=== PATIENT | male | born 1930 | race Caucasian/White ===

== ENCOUNTER 2017-01-21 12:20 | Emergency (ER) | payer MEDICARE ==
[2012-11-20 07:56] VITALS: BMI 21.2
== END 2017-01-21 17:20 | disposition home or self-care (01) ==
LOC: D.ER 12:20
DX: K59.00 Constipation, unspecified (principal); G20 Parkinson's disease

== ENCOUNTER 2017-09-13 08:05 | Emergency (ER) | payer MEDICARE, MEDICAID ==
[2012-11-20 07:56] VITALS: BMI 21.2
[2017-09-13 08:52] LABS: BASOPHILS 0.3 % (0-2); EOSINOPHILS 0.8 % (0-7); HEMATOCRIT 40.9 % (42.0-54.0); HEMOGLOBIN 13.8 g/dL (13.5-17.5); IMMATURE GRANULOCYTES 0.1 % (0-5); LYMPHOCYTES 11.1 % (15-50); MCH 30.4 pg (26.0-34.0); MCHC 33.7 g/dL (31.0-37.0); MCV 90.1 fL (80.0-100.0); MEAN PLATELET VOLUME 10.3 fL (7.4-10.4); MONOCYTES 10.1 % (2-11); NEUTROPHILS 77.6 % (40-80); PLATELET COUNT 152 10x3/uL (130-400); RBC 4.54 10x6/uL (4.20-6.10); RDW 13.8 % (11.5-14.5); WBC 7.3 10x3/uL (4.8-10.8)
[2017-09-13 09:08] LABS: ALKALINE PHOSPHATASE 35 U/L (46-116); AMYLASE - SERUM 50 U/L (25-115); BILIRUBIN - TOTAL 0.42 mg/dL (0.2-1.3); CALC OSMOLALITY 280 mosm/kg (275-300); CALCIUM 9.2 mg/dL (8.5-10.1); CARBON DIOXIDE 25.6 mmol/L (21.0-32.0); CHLORIDE - SERUM 103 mmol/L (98-107); CREATININE - SERUM 0.9 mg/dL (0.6-1.3); GLUCOSE 109 mg/dL (74-106); LIPASE 75 U/L (73-393); POTASSIUM - SERUM 4.6 mmol/L (3.5-5.1); PROTEIN - SERUM 7.5 g/dL (6.4-8.2); SODIUM 139 mmol/L (136-145); UREA NITROGEN 17 mg/dL (7-18); eGFR NON AFRICAN AMERICAN 85 mL/min (90-120)
[2017-09-13 09:17] LABS: ALT (SGPT) 5 U/L (10-68)
[2017-09-13 09:25] LABS: APPEARANCE HAZY (CLEAR); BILIRUBIN NEGATIVE (NEGATIVE); COLOR YELLOW (YELLOW); GLUCOSE NEGATIVE (NEGATIVE); KETONE NEGATIVE (NEGATIVE); NITRITE NEGATIVE (NEGATIVE); PROTEIN NEGATIVE (NEGATIVE); SPECIFIC GRAVITY 1.025 (1.005-1.020); UROBILINOGEN NORMAL (NORMAL)
[2017-09-13 09:34] LABS: EPITHELIAL CELLS OCC /hpf (0-5); RED CELLS - URINE 0-5 /hpf (0-5); WHITE CELLS - URINE RARE /hpf (0-5)
[2017-09-13 09:35] LABS: BACTERIA FEW /hpf (NONE SEEN); HYALINE CAST OCC /lpf (NONE SEEN); MUCUS <1+ /lpf (NONE SEEN)
== END 2017-09-13 11:36 | disposition home or self-care (01) ==
LOC: D.ER 08:05
PROVIDERS: Family Medicine
DX: K59.00 Constipation, unspecified (principal); G20 Parkinson's disease

== ENCOUNTER 2017-11-26 09:34 | Inpatient (IN) | payer MEDICARE, MEDICAID ==
[~2017-11-26] VITALS: Ht 182.9 cm; Wt 83.7 kg
[2017-11-26] VITALS (41 sets, daily range): BP systolic 95–165; BP diastolic 36–70; BMI 22.4
--- NOTE | ~2017-11-26 | DS ---
PATIENT:ISSAC MARS :30 MEDICAL RECORD: [id number] DISCHARGE SUMMARY ADMISSION DATE: 11/26/17 DISCHARGE DATE: 12/06/17 DIAGNOSES: 1. Non-Q-wave myocardial infarction. 2. Coronary artery disease. 3. PTCA stent LAD this admission. 4. Ischemic cardiomyopathy. 5. Respiratory failure. 6. COPD. HOSPITAL COURSE: This is a gentleman who presents with respiratory failure as well as chest pain, found to have a non-Q-wave myocardial infarction, underwent PTCA stent of the LAD. He was intubated; however, he was stable from a cardiac standpoint, he never recovered from a respiratory standpoint despite aggressive pulmonary efforts as well as antibiotic therapy and the decision was made by family to terminally extubate him, he soon thereafter. TRANSINT:[id number] Voice Confirmation ID: [id number] DOCUMENT ID: [id number] DEBBY PINTO MD at 1711 CC: [id number] DICTATION DATE: 01/09/18 1108 DISPATCHER RELAY: 01/09/18 1425 DIS IN 12/06/17 [id number] [place] [address]
--- NOTE | ~2017-11-26 | HP ---
PATIENT: ISSAC MARS MEDICAL RECORD: [id number] ACCOUNT: [id number] LOCATION:[facility].CV04 : 30 ADMISSION DATE: 11/26/17 HISTORY AND PHYSICAL EXAMINATION DIAGNOSES: 1. Acute anterior myocardial infarction. 2. Atrial fibrillation. 3. Congestive heart failure. 4. Coronary artery disease. 5. Peripheral vascular disease. 6. Parkinson's. 7. Chronic back pain. HISTORY OF PRESENT ILLNESS: Mr. Mars presents with chest pain. The chest pain actually started last night at approximately 2000 hours. He has continued to have chest pain this morning. His EKG is compatible with an acute anterior myocardial infarction as well as new-onset atrial fibrillation. His x-ray is compatible with pulmonary edema, congestive heart failure. He has no history of ischemic heart disease. He only has a history of peripheral vascular disease and a renal stent. He has a history of Parkinson's and chronic back pain. PHYSICAL EXAMINATION: GENERAL APPEARANCE: Well-nourished, well-developed, appears stated age. Level of distress, comfortable. PSYCHIATRIC: Mental status, alert, normal affect. Orientation, oriented to time, place and person. EYES: Lids and conjunctiva, noninjected. No discharge, no pallor. ENT: Lips, teeth, gums, normal dentition. Oropharynx, no cyanosis, no pallor. NECK: Carotid arteries, bilateral normal upstroke, no bruits, no thrills. JUGULAR VEINS: No jugular venous pressure or distention. CERVICAL LYMPH NODES: Nontender, nonenlarged. THYROID: Not enlarged. Nontender. No nodules. LUNGS: Bibasilar crackles. CHEST: Normal curvature. No thoracic deformity. No chest wall tenderness. Percussion, resonant. Auscultation, clear. No wheezes, no rales, no rhonchi. CARDIOVASCULAR: Irregularly irregular, atrial fibrillation. EXTREMITIES: No cyanosis, no edema. Peripheral pulses, full and equal in all extremities, except as noted. No bruits appreciated. ABDOMEN: Soft, nondistended. Normal aorta. No bruit. Nontender. No masses. Liver, nontender, no hepatomegaly. Spleen, nontender, no splenomegaly. MUSCULOSKELETAL: No joint tenderness. No joint swelling. No erythema. NEUROLOGICAL: Normal gait, normal strength, normal tone. SKIN: Warm and dry. OVERALL IMPRESSION: Myocardial infarction, continued chest pain; however, greater than 12 hours of a myocardial infarction at his age group with congestive heart failure puts him in a very poor prognostic group with greater than 80% mortality. We will proceed with cardiac catheterization for salvage angioplasty. Further care depends upon the findings of the catheterization. His systolic blood pressure is low in the 70s and 80s, most likely secondary to the myocardial infarction and LV pump failure. We will most likely start pressors and balloon pump as well. TRANSINT:[id number] Voice Confirmation ID: [id number] DOCUMENT ID: [id number] HISTORY AND PHYSICAL [id number] ISSAC MARS JEFFREY MD at 0956 CC: [id number] DICTATION DATE: 11/26/17 1141 CHANNEL MACHINE OPERATOR: 11/26/17 1209 ADM IN [facility] [address] [place] [address]
--- NOTE | ~2017-11-26 | OP ---
PATIENT NAME: ISSAC MARS MEDICAL RECORD: [id number] :30 LOCATION:D.[facility] D.CV04 ADMISSION DATE:11/26/17 SURGEON: DEBBY PINTO MD DATE OF OPERATION: 11/26/2017 PROCEDURES: 1. PTCA and stent of LAD. 2. Left heart catheterization. 3. Selective coronary angiography. 4. Left ventriculogram. 5. Intra-aortic balloon pump. INDICATION: Acute anterior myocardial infarction. PROCEDURE IN DETAIL: After informed consent was obtained and after detailed explanation of risks and benefits as well as alternative therapies, the patient elected to proceed with angiogram and angioplasty. The right femoral area was prepped and draped in normal sterile fashion. Right femoral artery was cannulated via modified Seldinger technique with placement of 8-Uzbek sheath. The left femoral artery was prepped and draped in normal sterile fashion. Left femoral artery was cannulated via modified Seldinger technique with placement of 7-Uzbek sheath. All catheters were exchanged through the sheath. FINDINGS: The left iliac is subtotally occluded with inability to pass balloon pump through the left iliac. Left ventriculogram performed in standard 30-degree MCKINLEY view reveals anteroapical akinesis. Ejection fraction 25%. SELECTIVE CORONARY ANGIOGRAPHY: 1. Left main has no significant angiographic disease. 2. Left anterior descending is totally occluded proximally. 3. Left circumflex has moderate irregularities, but no flow-limiting stenosis. 4. Right coronary is small and nondominant with no significant disease. PTCA AND STENT OF THE LAD: The stents used were 3.0 x 30 and 3.0 x 18, both Integrity stents. Result was 0% residual stenosis. OVERALL IMPRESSION: Successful PTCA and stent of the LAD going from 100% initial stenosis to 0% residual stenosis. Due to his low blood pressure, intra-aortic balloon pump was placed then through the right groin and positioned in the descending aorta and intra-aortic balloon counterpulsation was undertaken. At the end of the case, he had an augmented pressure of 110. TRANSINT:[id number] Voice Confirmation ID: [id number] DOCUMENT ID: [id number] DEBBY PINTO MD at 0956 CC: [id number] DICTATION DATE: 11/26/17 1143 CUSTOMER CARE AGENT: 11/26/17 1734 ADM IN [facility] [address] [place] [address]
--- NOTE | ~2017-11-26 | HEMODYNAMI ---
PATIENT:ISSAC MARS MEDICAL RECORD: [id number] : 30 LOCATION:D.ER ADMISSION DATE: 11/26/17 Generatedon:11/26/201712:26 Patient name: ISSAC MARS Patient #: [id number] SSN: : 1930 Date of study: 11/26/2017 Page: Of Hemodynamic Procedure Report Patient Data Patient Demographics Procedure consent was obtained First Name: ISSAC Gender: Male Last Name: MADISYN : 1930 [facility] Initial: C Age: 87 year(s) Patient #: [id number] Race: Unknown Additional ID: [id number] Contact details Address: [address] [place] [address] State: [place] City: [place] Zip code: [address] Admission Admission Data Admission Date: 11/26/2017 Admission Time: 9:34 Procedure Procedure Types Cath Procedure Diagnostic Procedure LHC LHC w/Coronaries Intra-Aortic Balloon Pump PCI Procedure AMI/SVG/BOOK ILLUSTRATOR PTCA or Stent AMI-BMS/ROSEY Initial Procedure Description Procedure Date Procedure Date: 11/26/2017 Procedure Start Time: 11:06 Procedure End Time: 12:26 Procedure Staff Name Function Stone Rucker MD Performing Physician Marielos Cole RT Monitor Ant Haque RN Nurse Virgilio Haines RT Scrub Procedure Data Cath Procedure Fluoroscopy Diagnostic fluoroscopy Total fluoroscopy Time: 8.1 time: 8.1 min min Diagnostic fluoroscopy Total fluoroscopy dose: 667 dose: 667 mGy mGy Contrast Material Contrast Material Type Amount (ml) Isovue 370 0 Isovue 300 105 Entry Location Entry Primary Successful Side Size Upsize Upsize Entry Closure Succes sful Closure Location (Fr) 1 (Fr) 2 (Fr) Remarks Device Remarks Femoral Right 6 Fr 8 Fr Sheath WITH artery Short sutured IABP IN in PLACE place Femoral Left 7 Fr Sheath artery Short sutured in place Estimated blood loss: 10 ml Diagnostic catheters Device Type Used For End Catheter Placement MULTIPACK JL 4.0 5Fr Left Coronary catheter Angiography MULTIPACK 3DRC 5Fr Right Coronary catheter Angiography MULTIPACK Pigtail 5 Fr LV Angiography catheter Procedure Complications Cardiogenic Shock Procedure Medications Medication Administration Route Dosage Oxygen NC 5 l/min Heparin Flush Bag added to field 2 bags (1000units/500ml NS) 0.9% NaCl I.V. 150 ml/hr Heparin Bolus I.V. 5000 units Integrilin (Bolus I.V. 6.2 ml 2mg/ml) Integrilin (Bolus I.C. 6.2 ml 2mg/ml) Integrilin Drip I.V. drip 11.2 ml/hr (75mg/100ml) Versed I.V. 5 mg unlisted medication I.V. 100 mg Heparin Bolus I.V. 5000 units Integrilin (Bolus wasted 7.6 ml 2mg/ml) Heparin Drip I.V. drip 1000 units/hr (13533lyhjb/250 D5W) Versed I.V. 2 mg Hemodynamics Rest Pre Cath Intra NCS Post Cath Vital Signs Time Heart Resp SPO2 etCO2 NIBP (mmHg) Rhythm Pain Sedation Rate (ipm) (%) (mmHg) Status Level (bpm) 10:57:23 96 13 0 105/87(100) NSR 0 (11) 10(A) , No pain 11:01:56 115 17 0 75/44(64) NSR 0 (11) 10(A) , No pain 11:06:55 101 18 0 Measuring NSR 0 (11) 10(A) , No pain 11:07:03 122 17 0 97/35(81) NSR 0 (11) 10(A) , No pain 11:11:33 121 20 0 78/56(68) NSR 0 (11) 10(A) , No pain 11:16:00 127 22 94 0 75/54(65) NSR 0 (11) 10(A) , No pain 11:20:28 101 18 0 54/39(50) NSR 0 (11) 10(A) , No pain 11:25:23 99 23 0 79/62(70) NSR 0 (11) 10(A) , No pain 11:30:22 130 20 0 Measuring NSR 0 (11) 10(A) , No pain 11:30:28 90 27 0 80/61(73) NSR 0 (11) 10(A) , No pain 11:34:56 114 14 0 79/55(75) NSR 0 (11) 2(A) , No pain 11:39:55 88 17 0 Measuring NSR 0 (11) 2(A) , No pain 11:39:57 87 17 0 87/46(75) NSR 0 (11) 2(A) , No pain 11:44:26 108 15 0 91/55(79) NSR 0 (11) 2(A) , No pain 11:48:52 111 17 0 84/66(74) NSR 0 (11) 2(A) , No pain 11:53:20 95 23 0 90/59(83) NSR 0 (11) 2(A) , No pain 11:58:19 75 11 0 97/48(76) NSR 0 (11) 2(A) , No pain 12:03:18 108 16 0 Measuring NSR 0 (11) 2(A) , No pain 12:03:28 110 16 0 89/66(85) NSR 0 (11) 2(A) , No pain 12:07:55 111 17 0 101/70(83) NSR 0 (11) 2(A) , No pain 12:12:23 114 16 0 95/80(85) NSR 0 (11) 2(A) , No pain 12:16:49 112 13 0 108/75(85) NSR 0 (11) 2(A) , No pain 12:21:22 111 19 0 104/57(82) NSR 0 (11) 2(A) , No pain Medications Time Medication Route Dose Verified Delivered Reason Not es Effectiveness by by 11:01:22 Oxygen NC 5 l/min Stone Cain Per physician Alka Haque RN 11:01:30 Heparin Flush added 2 bags Stone Cain used for Bag to Alka Haque RN procedure (1000units/500ml field NS) 11:01:43 0.9% NaCl I.V. 150 Stone Cain Per physician ml/hr Alka Haque RN 11:15:35 Heparin Bolus I.V. 5000 Stone Cain for units Alka Haque RN anticoagulation 11:17:24 Integrilin I.V. 6.2 ml Stone Cain for (Bolus 2mg/ml) Alka Haque RN antiplatelet therapy 11:20:30 Integrilin I.C. 6.2 ml Stone Ritter for (Bolus 2mg/ml) Alka Rucker MD antiplatelet therapy 11:29:16 Integrilin Drip I.V. 11.2 Stone Ritter for (75mg/100ml) drip ml/hr Alka Rucker MD antiplatelet therapy 11:31:38 Versed I.V. 5 mg Stone Cain for sedation Alka Haque RN 11:31:55 succs\ I.V. 100 mg Stone Garay Cosby Per physician Alka SMITH 11:38:24 Heparin Bolus I.V. 5000 Stone Cain for units Alka Haque RN anticoagulation 11:46:18 Integrilin wasted 7.6 ml Stone Cain for (Bolus 2mg/ml) Alka Haque RN antiplatelet therapy 11:56:56 Heparin Drip I.V. 1000 Stone Cain for (20486nprey/250 drip units/hr Alka Haque RN anticoagulation D5W) 12:03:01 Versed I.V. 2 mg Stone Cain for sedation Alka Haque RN Procedure Log Time Note 10:41:35 Ant Haque RN sent for patient. Start room use. 10:41:38 Time tracking: Call back (After hours or weekends) 10:41:42 Plan of Care:Hemodynamics will remain stable., Cardiac rhythm will remain stable., Comfort level will be maintained., Respiratory function will remain adequate., Patient/ family verbilizes understanding of procedure., Procedure tolerated without complication., Recovers from procedure without complications.. 10:56:35 Patient arrives emergently. 10:56:40 Patient received from ED to CCL 1 Alert and oriented. Tansferred to table in Supine position. 10:56:41 Warm blankets applied, and ashok hugger turned on for patient comfort. 10:56:42 Correct patient and procedure confirmed by team. 10:56:43 Signed procedure consent form obtained from patient. 10:56:43 ECG and BP/O2 sat monitors applied to patient. 10:56:44 Vital chart was started 10:58:39 Full Disclosure recording started 11:01:22 Oxygen 5 l/min NC was administered by Ant Haque RN; Per physician; 11:01:30 Heparin Flush Bag (1000units/500ml NS) 2 bags added to field was administered by Ant Haque RN; used for procedure; 11:01:43 0.9% NaCl 150 ml/hr I.V. was administered by Ant Haque RN; Per physician; 11:04:44 Pre-procedure instructions explained to patient. 11:04:47 H&P Date Dictated: 11/26/2017 Emergent; H&P N/A. 11:04:49 Pre-op teaching completed and patient verbalized understanding. 11:04:50 Family in waiting room. 11:04:52 Patient NPO since Midnight. 11:04:57 Patient diabetic? Yes. 11:04:59 Final Timeout: patient, procedure, and site verified with staff and physician. All members of the team are in agreement. 11:05:03 Bilateral groins site verified by team. 11:05:05 Physical assessment completed. ASA score P 4 - A patient with severe systemic disease that is a constant threat to life as per Stone Rucker MD. 11:05:08 Sedation plan: IV Moderate Sedation Medication:Versed, Fentanyl 11:05:14 Bilateral groins area was prepped with chlora-prep and draped in sterile fashion 11:05:15 Alarms reviewed by R. N. 11:05:15 Sharps counted by scrub and verified by R.N. 11:05:18 Lab results completed and on chart. 11:05:24 Use device set Femoral Dx 11:05:28 ACIST Syringe (56646) opened to sterile field. 11:05:29 Bag Decanter () opened to sterile field. 11:05:29 Medline Cath Pack ([id number]) opened to sterile field. 11:05:30 DIAGNOSTIC WIRE .035 260cm J wire (283738) opened to sterile field. 11:05:31 ACIST Hand Control (18910) opened to sterile field. 11:05:31 ACIST Manifold (51159) opened to sterile field. 11:05:32 DIAGNOSTIC Multipack 5Fr catheter set (ES8897) opened to sterile field. 11:05:33 Tegaderm 4 x 4 (1626W) opened to sterile field. 11:05:33 PERCUTANEOUS ENTRY 19GA needle opened to sterile field. 11:05:58 SHEATH 6Fr Prelude ([id number]) opened to sterile field. 11:06:03 Procedure started. 11:06:07 Local anesthetic to right femoral artery with Lidocaine 2% by Stone Rucker MD.INITIAL ACCESS ONLY 11:06:15 A 6 Fr Short sheath was inserted into the Right Femoral artery 11:06:29 IV patent on arrival in left wrist with 0.9% NaCl at KVO. 11:08:17 A MULTIPACK Pigtail 5 Fr catheter was advanced over the wire and used for LV Angiography. 11:10:35 A MULTIPACK JL 4.0 5Fr catheter was advanced over the wire and used for Left Coronary Angiography. 11:10:56 Catheter removed. 11:11:05 A MULTIPACK 3DRC 5Fr catheter was advanced over the wire and used for Right Coronary Angiography. 11:11:37 Catheter removed. 11:11:52 Use device set [facility] PCI 11:11:57 INFLATOR Merit BasixCompak (HR3326) opened to sterile field. 11:12:43 GUIDE 6FR XBLAD 3.5 catheter ([id number]) opened to sterile field. 11:12:54 6 Fr XBLAD 3.5 guide catheter was inserted over the wire 11:14:46 Inflate balloon Inflation number: 1 A EMERGE OTW 3.0 x 20 balloon ([id number]) was prepped and advanced across the Mid LAD, then inflated to 13 PO for 0:06 (min:sec). 11:15:35 Heparin Bolus 5000 units I.V. was administered by Ant Haque RN; for anticoagulation; 11:15:39 Balloon removed over the wire. 11:16:26 CHOICE PT ES wire advanced. 11:17:24 Integrilin (Bolus 2mg/ml) 6.2 ml I.V. was administered by Ant Haque RN; for antiplatelet therapy; 11:17:34 Place stent Inflation Number: 2 A INTEGRITY RX 3.0 x 30 stent ([id number]) was prepped and advanced across the Mid LAD. The stent was deployed at 13 PO for 0:07 (min:sec). 11:19:35 Stent catheter was removed intact over wire. 11:19:39 Place stent Inflation Number: 3 A INTEGRITY OTW 3.0 X 18 stent ([id number]) was prepped and advanced across the Mid LAD. The stent was deployed at 13 PO for 0:00 (min:sec). 11:19:42 Stent catheter was removed intact over wire. 11:20:01 CHOICE PT Extra Support J 300cm guide wire ([id number]) opened to sterile field. 11:20:30 Integrilin (Bolus 2mg/ml) 6.2 ml I.C. was administered by Stone Rucker MD; for antiplatelet therapy; 11:22:58 PATIENT LOST PRESSURE AND STOPPED BREATHING 11:23:43 CODE BLUE CALLED 11::06 Local anesthetic to left femerol artery with Lidocaine 2% by Stone Rucker MD.ADDITIONAL ACCESS 11:26:29 A 7 Fr Short sheath was inserted into the Left Femoral artery 11::57 LEFT ILIAC OCCLUDED 11:27:13 Wire removed. 11:27:15 Guide catheter removed. 11:29:16 Integrilin Drip (75mg/100ml) 11.2 ml/hr I.V. drip was administered by Stone Rucker MD; for antiplatelet therapy; 11::28 Sheath upsized to a 8 Fr. 11::48 34cc IABP inserted into the RFA . 11::52 Augmentation: 1:2 per physician. 11:29:53 Trigger: Pressure 11:30:34 Augmenter BP: 107 11:31:38 Versed 5 mg I.V. was administered by Ant Haque RN; for sedation; 11:31:55 succs\ 100 mg I.V. was administered by Dr Cosby; Per physician; 11:32:[address] COSBY WITH 8.0 TUBE WITH 24 LIP 11:38:24 Heparin Bolus 5000 units I.V. was administered by Ant Haque RN; for anticoagulation; 11:40:52 Procedure ended.(Physican Out) 11:45:33 Sheath removed intact; hemostasis achieved with Sheath sutured in place to the Right Femoral artery. 11:45:42 Fluoroscopy time 08.10 minutes. 11:46:18 Integrilin (Bolus 2mg/ml) 7.6 ml wasted was administered by Ant Haque RN; for antiplatelet therapy; 11:46:23 IABP 34cm balloon catheter ([id number]) opened to sterile field. 11:46:24 ART Line (PX260) opened to sterile field. 11:46:25 TUBING High Pressure Extension (IABP) opened to sterile field. 11:46:[address] Yogesh (346092) opened to sterile field. 11:47:30 SHEATH 7FR [place] (SDF730) opened to sterile field. 11:48:32 Flurop Dose total: 667 11:48:32 Fluoroscopy dose: 667 mGy 11:49:09 Contrast amount:Isovue 370 0ml. 11:49:37 Contrast amount:Isovue 300 105ml. 11:49:39 Sharps counted by scrub and verified by R.N. 11:49:41 Insertion/operative site no bleeding no hematoma. 11:49:45 Post-op/insertion site Right Femoral artery dressed using a 4 x 4 and Tegaderm. 11:49:50 Post right femoral artery:stable, clean and dry 11:50:17 Sheath removed intact; hemostasis achieved with Sheath sutured in place to the Left Femoral artery. 11:51:03 2-0 [place] 685H opened to sterile field. 11:51:06 2-0 [place] 685H opened to sterile field. 11:51:16 Post left femerol artery:stable, clean and dry 11:51:22 Post-op/insertion site Left Femoral artery dressed using a 4 x 4 and Tegaderm. 11:51:23 Post Procedure Pulses reassessed and unchanged 11:51:28 Post-procedure physical assessment completed. ASA score P 4 - A patient with severe systemic disease that is a constant threat to life as per Stone Rucker MD. 11:51:46 Post procedure rhythm: unchanged. 11:51:50 Estimated blood loss: 10 ml 11:51:51 Post procedure instruction explained to patient.Patient verbalizes understanding. 11:51:52 Patient needs reinforcement of post procedure teaching. 11:51:53 Procedure and supply charges have been captured, reviewed, submitted and are correct. 11:52:20 Procedure type changed to Cath procedure, Diagnostic procedure, LHC, LHC w/Coronaries, Intra-Aortic Balloon Pump, PCI procedure, AMI/SVG/BOOK ILLUSTRATOR PTCA or Stent, AMI-BMS/ROSEY Initial 11:53:16 See physician's report for complete and final results. 11:53:20 Procedure Complication : Cardiogenic Shock 11:56:56 Heparin Drip (80497iseui/250 D5W) 1000 units/hr I.V. drip was administered by Ant Haque RN; for anticoagulation; 12:01:12 Tegaderm 4 x 4 (1626W) opened to sterile field. 12:01:13 Tegaderm 4 x 4 (1626W) opened to sterile field. 12:01:15 Tegaderm 4 x 4 (1626W) opened to sterile field. 12:01:15 Tegaderm 4 x 4 (1626W) opened to sterile field. 12:01:16 Tegaderm 4 x 4 (1626W) opened to sterile field. 12:03:01 Versed 2 mg I.V. was administered by Ant Haque RN; for sedation; 12:06:05 ART Line (PX260) opened to sterile field. 12:06:31 ART LINE SET UP ON LFA SHEATH 12:23:27 Vital chart was stopped 12:26:11 Report given to CVICU. 12:26:14 Patient transfered to CVICU with Bed. 12:26:16 Procedure ended. 12:26:16 Full Disclosure recording stopped 12:26:19 End room use (Document Last) Intervention Summary Intervention Notes Time ActionType Lesion and Equipment Action# Pressure Duration Attributes Used 11:14:46 Inflate Mid LAD EMERGE OTW 1 13 00:06 balloon 3.0 x 20 balloon ([id number]) 11:17:34 Place stent Mid LAD INTEGRITY RX 2 13 00:07 3.0 x 30 stent ([id number]) 11:19:39 Place stent Mid LAD INTEGRITY 3 13 00:00 OTW 3.0 X 18 stent ([id number]) Device Usage Item Name Manufacture Quantity Catalog Number [facility] Lot# / Charge Number Stock Stock Serial# Code ACIST Syringe Acist 1 80621 588247 307141 448578 20 (76442) Medical Systems Inc Bag Decanter Microtek 1 2001S 092586 86120 812226 5 () Medical Inc. Medline Cath Cardinal 1 [id number] 189545 46155 382008 5 [facility] ([id number]) DIAGNOSTIC WIRE St Yogesh 1 004057 014042 803690 868426 30 .035 260cm J wire (094046) ACIST Hand Acist 1 24565 515483 460520 964105 5 Control (88752) Medical Systems Inc ACIST Manifold Acist 1 05283 581156 864529 344808 5 (92560) Medical Systems Inc DIAGNOSTIC Cardinal 1 LY2755 520333 12594 121759 30 Multipack 5Fr Health catheter set ([id number]) Tegaderm 4 x 4 3M 6 1626W 366445 047968 202251 5 (1626W) PERCUTANEOUS Cook Medical 1 U70346 674590 501099 5 ENTRY 19GA needle SHEATH 6Fr Merit 1 [id number] 643036 985713 115167 5 Prelude Medical ([id number]) MULTIPACK JL Cardinal 1 762456 5 4.0 5Fr Health catheter MULTIPACK 3DRC Cardinal 1 307752 5 5Fr catheter Health INFLATOR Merit Merit 1 ZW7659 071795 196978 401839 15 Hammerhead Systems ([id number]) GUIDE 6FR XBLAD Cardinal 1 [id number] 221309 519691 245415 10 3.5 catheter Health (83279804) EMERGE OTW 3.0 [place] 1 [id number] 333544 878292 469643 5 x 20 balloon Scientific ([id number]) INTEGRITY RX Medtronic 1 [id number] 881811 045715 227582 5 [id number] 3.0 x 30 stent ([id number]) INTEGRITY OTW Medtronic 1 [id number] 362376 137830 9 [id number] 3.0 X 18 stent ([id number]) CHOICE PT Extra [place] 1 [id number] 650415 935384 076094 5 Support J 300cm Scientific guide wire ([id number]) MULTIPACK Cardinal 1 664400 5 Pigtail 5 Fr Health catheter IABP 34cm [facility] 1 [id number] 080421 939760 835265 [address] [facility] catheter (635327) ([id number]) ART Line Romo 2 PX260 657240 09239 128421 5 (PX260) Lifesciences TUBING High Merit 1 [id number] 484432 808415 12 5 Pressure Medical Extension (IABP) SHEATH 8FR St St Yogesh 1 910659 673134 904302 113478 5 Yogesh (706733) SHEATH 7FR Terumo 1 DRR122 768162 989455 729264 5 [place] (JME528) 2-0 [facility]ly [facility] [address] [address] 685 640788 11508 281688 5 Signature Audit [place] Stage Time Signature Unsigned Intra-Procedure 11/26/2017 Marielos 12:26:29 PM Counts RT(R) Signatures Monitor : Marielos Signature : Counts RT Date : Time : [address] [address]
[2017-11-26 10:15] LABS: BASOPHILS 0.4 % (0-2); HEMATOCRIT 45.4 % (42.0-54.0); HEMOGLOBIN 15.4 g/dL (13.5-17.5); IMMATURE GRANULOCYTES 0.3 % (0-5); LYMPHOCYTES 8.4 % (15-50); MCH 30.9 pg (26.0-34.0); MCHC 33.9 g/dL (31.0-37.0); MCV 91.2 fL (80.0-100.0); MEAN PLATELET VOLUME 10.8 fL (7.4-10.4); MONOCYTES 8.3 % (2-11); NEUTROPHILS 81.6 % (40-80); PLATELET COUNT 156 10x3/uL (130-400); RBC 4.98 10x6/uL (4.20-6.10); RDW 14.2 % (11.5-14.5); WBC 10.8 10x3/uL (4.8-10.8)
[2017-11-26 10:28] LABS: INR 1.01 (0.85-1.17)
[2017-11-26 10:29] LABS: APTT 31.5 SECONDS (22.8-39.4)
[2017-11-26 10:32] LABS: ALBUMIN 3.8 g/dL (3.4-5.0); ALKALINE PHOSPHATASE 42 U/L (46-116); ALT (SGPT) 8 U/L (10-68); CALC OSMOLALITY 282 mosm/kg (275-300); CALCIUM 9.3 mg/dL (8.5-10.1); CHLORIDE - SERUM 105 mmol/L (98-107); CREATININE - SERUM 0.9 mg/dL (0.6-1.3); GLUCOSE 139 mg/dL (74-106); POTASSIUM - SERUM 4.7 mmol/L (3.5-5.1); PROTEIN - SERUM 7.9 g/dL (6.4-8.2); SODIUM 139 mmol/L (136-145); UREA NITROGEN 22 mg/dL (7-18); eGFR NON AFRICAN AMERICAN 85 mL/min (90-120)
[2017-11-26 10:38] LABS: APPEARANCE CLEAR (CLEAR); BILIRUBIN NEGATIVE (NEGATIVE); COLOR YELLOW (YELLOW); GLUCOSE NEGATIVE (NEGATIVE); KETONE NEGATIVE (NEGATIVE); NITRITE NEGATIVE (NEGATIVE); PROTEIN 1+ mg/dL (NEGATIVE); UROBILINOGEN NORMAL (NORMAL)
[2017-11-26 10:39] LABS: BACTERIA FEW /hpf (NONE SEEN); EPITHELIAL CELLS 0-5 /hpf (0-5); RED CELLS - URINE 0-5 /hpf (0-5); WHITE CELLS - URINE 0-5 /hpf (0-5)
[2017-11-26 10:40] LABS: MUCUS <1+ /lpf (NONE SEEN)
[2017-11-26 10:49] LABS: CREATINE KINASE 102 UL (21-232); LIPASE 79 U/L (73-393); MAGNESIUM - SERUM 2.3 mg/dL (1.8-2.4); PRO BNP 1693 pg/mL (0-450)
[2017-11-26 10:51] LABS: TROPONIN-I 0.936 ng/mL (0.000-0.060)
[2017-11-26] MEDS ORDERED: SINEMET 25-2501 EACH PO (15:31)
[2017-11-27] VITALS (28 sets, daily range): BP systolic 99–153; BP diastolic 43–87; Ht 182.9 cm; Wt 83.7 kg
[2017-11-27 05:22] LABS: BASOPHILS 0 % (0-2); EOSINOPHILS 0.1 % (0-7); HEMATOCRIT 36.7 % (42.0-54.0); HEMOGLOBIN 12.4 g/dL (13.5-17.5); IMMATURE GRANULOCYTES 0.3 % (0-5); LYMPHOCYTES 4.5 % (15-50); MCH 30.2 pg (26.0-34.0); MCHC 33.8 g/dL (31.0-37.0); MCV 89.5 fL (80.0-100.0); MEAN PLATELET VOLUME 11.4 fL (7.4-10.4); MONOCYTES 11.3 % (2-11); NEUTROPHILS 83.8 % (40-80); PLATELET COUNT 184 10x3/uL (130-400); RDW 14.2 % (11.5-14.5)
[2017-11-27 05:26] LABS: WBC 15.8 10x3/uL (4.8-10.8)
[2017-11-27 05:36] LABS: ALBUMIN 2.9 g/dL (3.4-5.0); ALKALINE PHOSPHATASE 28 U/L (46-116); CALCIUM 8.6 mg/dL (8.5-10.1); CARBON DIOXIDE 21.9 mmol/L (21.0-32.0); CHLORIDE - SERUM 105 mmol/L (98-107); GLUCOSE 169 mg/dL (74-106); PHOSPHOROUS 3.7 mg/dL (2.5-4.9); POTASSIUM - SERUM 4.2 mmol/L (3.5-5.1); PROTEIN - SERUM 6.8 g/dL (6.4-8.2); SODIUM 137 mmol/L (136-145); eGFR NON AFRICAN AMERICAN 75 mL/min (90-120)
[2017-11-27 05:37] LABS: ALT (SGPT) 46 U/L (10-68); CALC OSMOLALITY 283 mosm/kg (275-300); UREA NITROGEN 29 mg/dL (7-18)
[2017-11-28] VITALS (24 sets, daily range): BP systolic 96–127; BP diastolic 50–92
[2017-11-28 04:42] LABS: BASOPHILS 0.1 % (0-2); EOSINOPHILS 0.3 % (0-7); HEMATOCRIT 34.2 % (42.0-54.0); HEMOGLOBIN 11.5 g/dL (13.5-17.5); IMMATURE GRANULOCYTES 0.2 % (0-5); LYMPHOCYTES 8.2 % (15-50); MCH 30.2 pg (26.0-34.0); MCHC 33.6 g/dL (31.0-37.0); MCV 89.8 fL (80.0-100.0); MEAN PLATELET VOLUME 11.2 fL (7.4-10.4); MONOCYTES 13.4 % (2-11); NEUTROPHILS 77.8 % (40-80); PLATELET COUNT 164 10x3/uL (130-400); RBC 3.81 10x6/uL (4.20-6.10); RDW 14.3 % (11.5-14.5); WBC 11.5 10x3/uL (4.8-10.8)
[2017-11-28 04:58] LABS: ALBUMIN 2.8 g/dL (3.4-5.0); ALKALINE PHOSPHATASE 23 U/L (46-116); ALT (SGPT) 44 U/L (10-68); CALC OSMOLALITY 279 mosm/kg (275-300); CALCIUM 8.4 mg/dL (8.5-10.1); CARBON DIOXIDE 24.5 mmol/L (21.0-32.0); CHLORIDE - SERUM 102 mmol/L (98-107); CREATININE - SERUM 0.9 mg/dL (0.6-1.3); GLUCOSE 131 mg/dL (74-106); MAGNESIUM - SERUM 2.1 mg/dL (1.8-2.4); PROTEIN - SERUM 6.6 g/dL (6.4-8.2); SODIUM 137 mmol/L (136-145); UREA NITROGEN 24 mg/dL (7-18); eGFR NON AFRICAN AMERICAN 85 mL/min (90-120)
[2017-11-28 05:07] LABS: PHOSPHOROUS 2.2 mg/dL (2.5-4.9)
[2017-11-29] VITALS (23 sets, daily range): BP systolic 90–111; BP diastolic 56–70
[2017-11-29 05:04] LABS: BASOPHILS 0.1 % (0-2); EOSINOPHILS 0.2 % (0-7); HEMATOCRIT 33.5 % (42.0-54.0); HEMOGLOBIN 11.2 g/dL (13.5-17.5); IMMATURE GRANULOCYTES 0.1 % (0-5); LYMPHOCYTES 7.9 % (15-50); MCH 29.9 pg (26.0-34.0); MCHC 33.4 g/dL (31.0-37.0); MCV 89.6 fL (80.0-100.0); MEAN PLATELET VOLUME 11.2 fL (7.4-10.4); MONOCYTES 12.3 % (2-11); NEUTROPHILS 79.4 % (40-80); PLATELET COUNT 164 10x3/uL (130-400); RBC 3.74 10x6/uL (4.20-6.10); RDW 14.4 % (11.5-14.5); WBC 10.1 10x3/uL (4.8-10.8)
[2017-11-29 05:29] LABS: ALBUMIN 2.8 g/dL (3.4-5.0); ALKALINE PHOSPHATASE 24 U/L (46-116); ALT (SGPT) 36 U/L (10-68); CALC OSMOLALITY 281 mosm/kg (275-300); CALCIUM 8.6 mg/dL (8.5-10.1); CARBON DIOXIDE 25.4 mmol/L (21.0-32.0); CHLORIDE - SERUM 104 mmol/L (98-107); GLUCOSE 131 mg/dL (74-106); POTASSIUM - SERUM 3.9 mmol/L (3.5-5.1); PROTEIN - SERUM 6.9 g/dL (6.4-8.2); SODIUM 138 mmol/L (136-145); UREA NITROGEN 24 mg/dL (7-18); eGFR NON AFRICAN AMERICAN 75 mL/min (90-120)
[2017-11-30] VITALS (25 sets, daily range): BP systolic 102–129; BP diastolic 58–91
[2017-11-30 04:16] LABS: BASOPHILS 0.1 % (0-2); EOSINOPHILS 0.3 % (0-7); HEMATOCRIT 34.9 % (42.0-54.0); HEMOGLOBIN 11.6 g/dL (13.5-17.5); IMMATURE GRANULOCYTES 0.3 % (0-5); LYMPHOCYTES 8.9 % (15-50); MCH 30.1 pg (26.0-34.0); MCHC 33.2 g/dL (31.0-37.0); MCV 90.6 fL (80.0-100.0); MEAN PLATELET VOLUME 11.5 fL (7.4-10.4); MONOCYTES 10.4 % (2-11); PLATELET COUNT 175 10x3/uL (130-400); RBC 3.85 10x6/uL (4.20-6.10); RDW 14.5 % (11.5-14.5); WBC 11.4 10x3/uL (4.8-10.8)
[2017-11-30 04:37] LABS: ALBUMIN 2.8 g/dL (3.4-5.0); ALKALINE PHOSPHATASE 29 U/L (46-116); ALT (SGPT) 38 U/L (10-68); CALC OSMOLALITY 283 mosm/kg (275-300); CALCIUM 8.7 mg/dL (8.5-10.1); CARBON DIOXIDE 25.8 mmol/L (21.0-32.0); CHLORIDE - SERUM 103 mmol/L (98-107); GLUCOSE 143 mg/dL (74-106); MAGNESIUM - SERUM 2.3 mg/dL (1.8-2.4); POTASSIUM - SERUM 3.9 mmol/L (3.5-5.1); SODIUM 138 mmol/L (136-145); UREA NITROGEN 30 mg/dL (7-18); eGFR NON AFRICAN AMERICAN 75 mL/min (90-120)
[2017-11-30 04:38] LABS: PHOSPHOROUS 3.4 mg/dL (2.5-4.9)
[2017-12-01] VITALS (27 sets, daily range): BP systolic 92–124; BP diastolic 48–70
[2017-12-01 03:46] LABS: BASOPHILS 0.1 % (0-2); EOSINOPHILS 0.2 % (0-7); HEMOGLOBIN 11.3 g/dL (13.5-17.5); IMMATURE GRANULOCYTES 0.4 % (0-5); LYMPHOCYTES 5.6 % (15-50); MCH 30.1 pg (26.0-34.0); MCHC 33.2 g/dL (31.0-37.0); MCV 90.7 fL (80.0-100.0); MEAN PLATELET VOLUME 11.1 fL (7.4-10.4); MONOCYTES 14.1 % (2-11); NEUTROPHILS 79.6 % (40-80); PLATELET COUNT 187 10x3/uL (130-400); RBC 3.75 10x6/uL (4.20-6.10); RDW 14.4 % (11.5-14.5); WBC 11.9 10x3/uL (4.8-10.8)
[2017-12-01 04:08] LABS: CALC OSMOLALITY 288 mosm/kg (275-300); CALCIUM 8.4 mg/dL (8.5-10.1); CARBON DIOXIDE 24.3 mmol/L (21.0-32.0); CHLORIDE - SERUM 103 mmol/L (98-107); CREATININE - SERUM 0.9 mg/dL (0.6-1.3); GLUCOSE 162 mg/dL (74-106); MAGNESIUM - SERUM 2.4 mg/dL (1.8-2.4); PHOSPHOROUS 2.8 mg/dL (2.5-4.9); SODIUM 138 mmol/L (136-145); UREA NITROGEN 37 mg/dL (7-18); eGFR NON AFRICAN AMERICAN 85 mL/min (90-120)
[2017-12-02] VITALS (24 sets, daily range): BP systolic 90–130; BP diastolic 42–96
[2017-12-02 05:48] LABS: BASOPHILS 0.1 % (0-2); EOSINOPHILS 0.1 % (0-7); HEMATOCRIT 34.5 % (42.0-54.0); HEMOGLOBIN 11.4 g/dL (13.5-17.5); IMMATURE GRANULOCYTES 0.5 % (0-5); LYMPHOCYTES 4.6 % (15-50); MCH 30.2 pg (26.0-34.0); MCV 91.3 fL (80.0-100.0); MEAN PLATELET VOLUME 11.9 fL (7.4-10.4); MONOCYTES 14.8 % (2-11); NEUTROPHILS 79.9 % (40-80); RBC 3.78 10x6/uL (4.20-6.10); RDW 14.8 % (11.5-14.5)
[2017-12-02 05:55] LABS: PLATELET COUNT 236 10x3/uL (130-400); WBC 15.8 10x3/uL (4.8-10.8)
[2017-12-02 06:12] LABS: ALBUMIN 2.5 g/dL (3.4-5.0); BILIRUBIN - DIRECT 0.2 mg/dL (0.00-0.30); BILIRUBIN - INDIRECT 0.36 mg/dL (0.00-1.00); BILIRUBIN - TOTAL 0.56 mg/dL (0.2-1.3); CALCIUM 8.5 mg/dL (8.5-10.1); CARBON DIOXIDE 22.5 mmol/L (21.0-32.0); POTASSIUM - SERUM 4.5 mmol/L (3.5-5.1); PROTEIN - SERUM 7.1 g/dL (6.4-8.2)
[2017-12-02 06:18] LABS: CREATININE - SERUM 1.3 mg/dL (0.6-1.3)
[2017-12-03] VITALS (25 sets, daily range): BP systolic 89–112; BP diastolic 49–69
[2017-12-03 04:00] LABS: BASOPHILS 0.1 % (0-2); EOSINOPHILS 0.2 % (0-7); HEMATOCRIT 33.2 % (42.0-54.0); HEMOGLOBIN 10.9 g/dL (13.5-17.5); IMMATURE GRANULOCYTES 0.6 % (0-5); LYMPHOCYTES 5.8 % (15-50); MCH 29.9 pg (26.0-34.0); MCHC 32.8 g/dL (31.0-37.0); MEAN PLATELET VOLUME 11.6 fL (7.4-10.4); MONOCYTES 10.3 % (2-11); PLATELET COUNT 258 10x3/uL (130-400); RBC 3.65 10x6/uL (4.20-6.10); RDW 14.6 % (11.5-14.5); WBC 14.2 10x3/uL (4.8-10.8)
[2017-12-03 04:18] LABS: ALBUMIN 2.3 g/dL (3.4-5.0); ANION GAP 13.3 mmol/L (8-16); BILIRUBIN - TOTAL 0.66 mg/dL (0.2-1.3); CALCIUM 8.3 mg/dL (8.5-10.1); CARBON DIOXIDE 24.8 mmol/L (21.0-32.0); CREATININE - SERUM 1.2 mg/dL (0.6-1.3); POTASSIUM - SERUM 4.1 mmol/L (3.5-5.1); PROTEIN - SERUM 6.8 g/dL (6.4-8.2)
[2017-12-04] VITALS (25 sets, daily range): BP systolic 91–106; BP diastolic 46–64
[2017-12-04 04:42] LABS: BASOPHILS 0.1 % (0-2); EOSINOPHILS 0.5 % (0-7); HEMATOCRIT 30.2 % (42.0-54.0); IMMATURE GRANULOCYTES 0.5 % (0-5); LYMPHOCYTES 5.3 % (15-50); MCH 30.1 pg (26.0-34.0); MCHC 33.1 g/dL (31.0-37.0); MEAN PLATELET VOLUME 11.6 fL (7.4-10.4); MONOCYTES 10.1 % (2-11); NEUTROPHILS 83.5 % (40-80); PLATELET COUNT 268 10x3/uL (130-400); RBC 3.32 10x6/uL (4.20-6.10); RDW 14.4 % (11.5-14.5); WBC 11.6 10x3/uL (4.8-10.8)
[2017-12-04 05:27] LABS: ALKALINE PHOSPHATASE 72 U/L (46-116); CALCIUM 8.1 mg/dL (8.5-10.1); CARBON DIOXIDE 23.4 mmol/L (21.0-32.0); GLUCOSE 166 mg/dL (74-106); MAGNESIUM - SERUM 2.7 mg/dL (1.8-2.4); PHOSPHOROUS 2.9 mg/dL (2.5-4.9); PRO BNP 17902 pg/mL (0-450); PROTEIN - SERUM 6.1 g/dL (6.4-8.2); UREA NITROGEN 68 mg/dL (7-18); eGFR NON AFRICAN AMERICAN 75 mL/min (90-120)
[2017-12-04 05:28] LABS: ALT (SGPT) 189 U/L (10-68); TROPONIN-I 2.427 ng/mL (0.000-0.060)
[2017-12-04 06:05] LABS: CALC OSMOLALITY 293 mosm/kg (275-300); CHLORIDE - SERUM 102 mmol/L (98-107); POTASSIUM - SERUM 3.9 mmol/L (3.5-5.1); SODIUM 135 mmol/L (136-145)
[2017-12-05] VITALS (26 sets, daily range): BP systolic 93–111; BP diastolic 49–63
[2017-12-05 04:06] LABS: BASOPHILS 0.1 % (0-2); EOSINOPHILS 0.6 % (0-7); HEMATOCRIT 30.9 % (42.0-54.0); IMMATURE GRANULOCYTES 1.1 % (0-5); LYMPHOCYTES 5.1 % (15-50); MCH 29.6 pg (26.0-34.0); MCHC 32.4 g/dL (31.0-37.0); MCV 91.4 fL (80.0-100.0); MEAN PLATELET VOLUME 10.9 fL (7.4-10.4); MONOCYTES 12.9 % (2-11); NEUTROPHILS 80.2 % (40-80); PLATELET COUNT 275 10x3/uL (130-400); RBC 3.38 10x6/uL (4.20-6.10); RDW 14.5 % (11.5-14.5); WBC 12.1 10x3/uL (4.8-10.8)
[2017-12-05 04:33] LABS: ANION GAP 12.1 mmol/L (8-16); CARBON DIOXIDE 25.2 mmol/L (21.0-32.0); CREATININE - SERUM 1.2 mg/dL (0.6-1.3); POTASSIUM - SERUM 4.3 mmol/L (3.5-5.1)
[2017-12-06] VITALS (12 sets, daily range): BP systolic 80–104; BP diastolic 49–57
[2017-12-06 05:17] LABS: BASOPHILS 0.1 % (0-2); EOSINOPHILS 0.5 % (0-7); HEMATOCRIT 31.9 % (42.0-54.0); HEMOGLOBIN 10.3 g/dL (13.5-17.5); LYMPHOCYTES 4.4 % (15-50); MCH 29.4 pg (26.0-34.0); MCHC 32.3 g/dL (31.0-37.0); MCV 91.1 fL (80.0-100.0); MEAN PLATELET VOLUME 11.4 fL (7.4-10.4); MONOCYTES 7.3 % (2-11); NEUTROPHILS 86.7 % (40-80); PLATELET COUNT 317 10x3/uL (130-400); RDW 14.7 % (11.5-14.5)
[2017-12-06 05:18] LABS: WBC 16.6 10x3/uL (4.8-10.8)
[2017-12-06 05:33] LABS: CALCIUM 8.2 mg/dL (8.5-10.1); CARBON DIOXIDE 24.3 mmol/L (21.0-32.0); CHLORIDE - SERUM 99 mmol/L (98-107); CREATININE - SERUM 0.9 mg/dL (0.6-1.3); GLUCOSE 156 mg/dL (74-106); SODIUM 131 mmol/L (136-145); eGFR NON AFRICAN AMERICAN 85 mL/min (90-120)
[2017-12-06 05:35] LABS: CALC OSMOLALITY 277 mosm/kg (275-300); POTASSIUM - SERUM 5.1 mmol/L (3.5-5.1); UREA NITROGEN 47 mg/dL (7-18)
== END 2017-12-06 13:00 | DRG 270 ==
LOC: D.ER 09:34 → D.CVICU 11:02
PROVIDERS: Family Medicine; Internal Medicine Interventional Cardiology; Internal Medicine Pulmonary Disease
PROC: B2111ZZ Fluoroscopy of Multiple Coronary Arteries using Low Osmolar Contrast (ICD-10-PCS; 2017-11-26)
PROC: B2151ZZ Fluoroscopy of Left Heart using Low Osmolar Contrast (ICD-10-PCS; 2017-11-26)
PROC: 5A1955Z Respiratory Ventilation, Greater than 96 Consecutive Hours (ICD-10-PCS; 2017-11-26)
PROC: 0BH17EZ Insertion of Endotracheal Airway into Trachea, Via Natural or Artificial Opening (ICD-10-PCS; 2017-11-26)
PROC: 02703EZ Dilation of Coronary Artery, One Artery with Two Intraluminal Devices, Percutaneous Approach (ICD-10-PCS; principal; 2017-11-26 11:00)
PROC: 5A02210 Assistance with Cardiac Output using Balloon Pump, Continuous (ICD-10-PCS; 2017-11-26 11:00)
PROC: 4A023N7 Measurement of Cardiac Sampling and Pressure, Left Heart, Percutaneous Approach (ICD-10-PCS; 2017-11-26 11:00)
DX: I21.09 ST elevation (STEMI) myocardial infarction involving other coronary artery of anterior wall (principal); I50.21 Acute systolic (congestive) heart failure; J96.01 Acute respiratory failure with hypoxia; J69.0 Pneumonitis due to inhalation of food and vomit; J98.11 Atelectasis; R57.0 Cardiogenic shock; I95.9 Hypotension, unspecified; I48.91 Unspecified atrial fibrillation; I25.10 Atherosclerotic heart disease of native coronary artery without angina pectoris; I73.9 Peripheral vascular disease, unspecified; G20 Parkinson's disease; G89.29 Other chronic pain; M54.9 Dorsalgia, unspecified; D64.9 Anemia, unspecified; M85.80 Other specified disorders of bone density and structure, unspecified site; Z66 Do not resuscitate; R74.8 Abnormal levels of other serum enzymes